=== PATIENT | female | born 1990 | race Caucasian/White ===

== ENCOUNTER 2024-05-14 19:51 | Emergency (ER) | payer OTHER, SELFPAY ==
[2024-05-14 19:54] VITALS: BP 162/108; BMI 53.3
--- NOTE | 2024-05-14 23:16 | ED.GENMED ---
History of Present Illness
General
Chief Complaint: Back Pain
Source: patient
Exam Limitations: none
Time Seen by Provider: 05/14/24 23:05
Nursing documentation reviewed up to this point in time: agreed with
History of Present Illness
History of Present Illness:
This is a 33-year-old woman with remote history of IV drug abuse, has been sober since 2019. She complains of right mid back pain that began mildly 5 days ago. She thought that she had pulled a muscle or slept funny. Mild discomfort over the past
5 days but then today while moving a couch she developed abrupt, severe pain right mid back and felt a pop in her right back region. She is concerned for possible rib fracture. Pain is worse with rotation of her trunk, worse with raising her right
arm above her head. She denies shortness of breath and pain is only minimally increased with deep breath. She has not had a cough, no fever no chills, no abdominal pain, no palpitations. She has not taken anything for discomfort.
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 She is scheduled to return to work on Thursday, May 16.
Past History
Past History
ED Past Medical History: Psychiatric (Depression, bipolar disorder, prior history of substance abuse), Other (IV drug abuse-sober since 2019) and Other (Gallstone pancreatitis, UTIs)
ED Past Surgical History: Appendectomy and Cholecystectomy
Social History
Tobacco: Smoker (1 cigarette per day)
Alcohol: None
Drug: Former user
Personal: Single
Living: with family
Employment: Employed (Works in retail)
Family History
Family History: Negative Early CAD
Phy Exam
Physical Exam
Physical Exam:
GENERAL: 33-year-old obese woman appears her stated age, sitting upright in chair in exam room. She is bright and alert, pleasant, appears in no acute distress.
EYE: pupils equal and round. Anicteric
NECK: Supple, nontender, no meningismus, no significant adenopathy. No midline bony tenderness.
ENT: oral mucosa is moist. No rhinorrhea.
CARDIAC: Regular rate and rhythm. no murmur. No tenderness to the anterior chest wall.
LUNGS: Clear breath sounds bilaterally, no acute respiratory distress, no wheezes/rales/rhonchi
BACK: No midline bony tenderness. There is moderate tenderness right mid to distal thoracic region at area of palpable muscle spasm right thoracic paravertebral musculature. There is no tenderness to the upper back, no parascapular tenderness nor
tenderness across the shoulders.
ABDOMEN: Soft, nondistended, without focal tenderness, no r/g, no cvat. normoactive BS.
NEUROLOGICAL: Alert and oriented x3, no focal neuro deficits. Gait is steady.
SKIN: Warm and dry, normal color, skin intact. No rash.
MUSCULOSKELETAL: No C/C/E. peripheral pulses are full and equal b/l. No palpable tenderness.
PSYCH: Normal and appropriate interaction.
Course
Orders/Labs/Results
Orders:
Orders
05/14/24 19:57
Ribs, Right 3 View W/PA Chest [CR Ribs-right 3 Vw W/pa Chest*] Urgent
Comment:
Reason For Exam: pain
05/14/24 23:16
Cyclobenzaprine HCl [Flexeril] 10 mg PO NOW STA
Ketorolac [Toradol] 60 mg IM NOW STA
Vital Signs
Initial and Last Documented VS:
Initial Vital Signs
Temp Pulse Resp BP Pulse Ox
98.2 F 100 24 162/108 99
05/14/24 19:54 05/14/24 19:54 05/14/24 19:54 05/14/24 19:54 05/14/24 19:54
Last Documented Vital Signs
Temp Pulse Resp BP Pulse Ox
98.2 F 100 24 162/108 99
05/14/24 19:54 05/14/24 19:54 05/14/24 19:54 05/14/24 19:54 05/14/24 19:54
MDM/Problems Addressed
Differential Diagnosis Includes:
History and exam most consistent with acute thoracic paravertebral muscle spasm. Must consider occult rib fracture, pneumothorax, less likely pneumonia/infiltrate.
Moderately elevated blood pressure initially likely related to pain. Improving upon recheck.
Chest x-ray/rib series shows clear lung valladares, no pneumothorax, no evidence of rib fracture.
Will medicate for pain with an IM dose of Toradol and an oral dose of Flexeril and a prescription for diclofenac has been provided for as needed pain along with Flexeril for as needed muscle spasm.
Discussed supportive measures, topical ice then transitioning to heat.
Prompt follow-up with PCP for recheck.
Out of work note provided.
Return precautions discussed.
Chronic conditions affecting care: Other (Remote history of substance abuse; opioids will be avoided.)
*Radiology
Radiology exam reviewed: preliminary read by ED provider (Chest x-ray/right rib series shows no evidence of fracture. Clear lung valladares.)
*Pulse Oximetry
Patient hypoxic: no
*Critical Care Note
Total Time (30-74mins, 75-104mins- exclusive of procedures): Not Applicable
ED Attending Note
-
Portions of this chart may have been created with voice recognition software.� Occasional wrong word or��sound alike� substitutions may have occurred due to the inherent limitations of voice recognition software.
Discharge Plan
Departure
Patient Disposition: Home (Routine Discharge)
Date of Disposition: 05/14/24
Time of Disposition: 23:16
Patient with high blood pressure during this ER visit?: Yes
Condition: Good
Discharge Problem:
acute right thoracic muscle strain
Instructions: Back Muscle Strain (DC), BLOOD PRESSURE
Prescriptions:
New
cyclobenzaprine 10 mg tablet
10 mg PO TIDPRN PRN (Reason: muscle spasm) Qty: 20 0RF
diclofenac sodium 75 mg tablet,delayed release (DR/EC)
75 mg PO BID PRN (Reason: pain) Qty: 30 0RF
No Action
prazosin 1 MG capsule
1 mg PO DAILY
risperidone 2 MG tablet
2.5 mg PO DAILY
ondansetron 4 MG tablet,disintegrating
4 mg PO TIDPRN PRN (Reason: nausea/vomiting) Qty: 14 0RF
cephalexin 500 mg capsule
500 mg PO TID 10 Days Qty: 30 0RF
Referrals:
Rukhsana Antoine, [Family Provider] - Call in 1-3 days for appt
Stand Alone Forms: Return to Work
Interventions
Interventions:
*Risk Screen - Suicide Last Done: 05/14/24 19:54
*General Assessment Last Done: 05/14/24 22:37
*Neglect/Abuse Screening Last Done: 05/14/24 19:54
ED- Fall Risk Assessment Last Done: 05/14/24 19:54
ED-Musculoskeletal Assessment Last Done: 05/14/24 20:57
Discharge Date and Time
Print Language: URDU
[2024-05-14] MEDS: FLEXERIL 10 MG PO (23:35)
[2024-05-14] MEDS: TORADOL 60 MG IM (23:35)
[2024-05-14 23:39] VITALS: BP 164/99
== END 2024-05-14 23:47 | disposition home or self-care (01) ==
LOC: EMR 19:51
PROVIDERS: EMERGENCY PHYSICIAN Emergency Medicine; FAMILY PHYSICIAN Family Medicine
DX: S29.012A Strain of muscle and tendon of back wall of thorax, initial encounter (principal); M62.830 Muscle spasm of back; M79.601 Pain in right arm; X50.0XXA Overexertion from strenuous movement or load, initial encounter; Y93.89 Activity, other specified; R03.0 Elevated blood-pressure reading, without diagnosis of hypertension; F32.A Depression, unspecified; F31.9 Bipolar disorder, unspecified; F17.210 Nicotine dependence, cigarettes, uncomplicated; F19.11 Other psychoactive substance abuse, in remission; Z87.440 Personal history of urinary (tract) infections; Z90.49 Acquired absence of other specified parts of digestive tract
CPT/HCPCS: 99284; 96372; 71101

== ENCOUNTER 2024-09-23 10:19 | Emergency (ER) | payer OTHER, SELFPAY ==
[2024-09-23 10:24] VITALS: BP 143/90
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
--- NOTE | 2024-09-23 10:40 | EDRN ---
Azul MALONEY in room w/ pt.
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
[2024-09-23 10:54] VITALS: BMI 51.3
--- NOTE | 2024-09-23 14:00 | EDRN ---
Pt cleared by psychiatrist and will be discharged home to continue to see her own psychiatrist and continue her outpatient therapy.
[2024-09-23 14:10] VITALS: BP 129/92
--- NOTE | 2024-09-23 14:19 | EDRN ---
[facility] started at 10:30 am deborah/ Skye ARGUELLES.
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
== END 2024-09-23 14:10 | disposition home or self-care (01) ==
LOC: EMR 10:19
PROVIDERS: EMERGENCY PHYSICIAN Emergency Medicine
DX: Z13.30 Encounter for screening examination for mental health and behavioral disorders, unspecified (principal); R45.851 Suicidal ideations; F60.3 Borderline personality disorder; F31.9 Bipolar disorder, unspecified; F43.10 Post-traumatic stress disorder, unspecified; F17.200 Nicotine dependence, unspecified, uncomplicated; Z87.440 Personal history of urinary (tract) infections; Z90.49 Acquired absence of other specified parts of digestive tract
CPT/HCPCS: 99282

== ENCOUNTER 2024-10-16 11:26 | Emergency (ER) | payer OTHER, SELFPAY ==
[2024-10-16 11:29] VITALS: BP 137/98
[2024-10-16 12:04] VITALS: BMI 49.4
--- NOTE | 2024-10-16 12:34 | ED.GENMED ---
History of Present Illness
General
Chief Complaint: Dental Problem
Time Seen by Provider: 10/16/24 12:21
History of Present Illness
History of Present Illness:
33-year-old female presents to the emergency department for evaluation of right-sided facial swelling and pain beginning yesterday. Known dental caries, states due to the sharp limitations she is unable to get any definitive dental treatments done.
No fevers or chills. Denies dysphagia or voice changes.
Past History
Past History
ED Past Medical History: Psychiatric (Depression, bipolar disorder, prior history of substance abuse), Other (IV drug abuse-sober since 2019) and Other (Gallstone pancreatitis, UTIs)
ED Past Surgical History: Appendectomy and Cholecystectomy
Social History
Tobacco: Smoker (1 cigarette per day)
Alcohol: None
Drug: Former user
Personal: Single
Living: with family
Employment: Employed (Works in retail)
Family History
Family History: Negative Early CAD
Review of Systems
Review of Systems
Allergies reviewed?: Yes
All Other Systems: ROS reviewed and negative except as documented in HPI and ROS
Phy Exam
Physical Exam
Physical Exam:
GEN: Well appearing, NAD, WDWN
HEENT: Oral mucosa moist, no scleral icterus. Moderate right mandibular swelling with palpable abscess to the right buccal gingiva, mild cervical adenopathy
Cardiac: Regular rate
Lung: No respiratory distress, no tachypnea
MSK: No gross deformity or injuries
Skin: Good color, no pallor or jaundice, no rashes
Neuro: AO x3, moves all extremities freely
Psych: Calm, cooperative
Course
Vital Signs
Initial and Last Documented VS:
Initial Vital Signs
Temp Pulse Resp BP Pulse Ox
97.7 F 88 16 137/98 100
10/16/24 11:29 10/16/24 11:29 10/16/24 11:29 10/16/24 11:29 10/16/24 11:29
Last Documented Vital Signs
Temp Pulse Resp BP Pulse Ox
97.7 F 88 16 137/98 100
10/16/24 11:29 10/16/24 11:29 10/16/24 11:29 10/16/24 11:29 10/16/24 11:29
Procedures
Incision/Drainage/Joint Aspiration
R buccal mucosa:
Anethesia: 1% Lidocaine with Epi
Type of procedure: incise and drain
Nature of site: abscess
Description of abscess: less than 3cm
Loculations broken up: No
How much fluid was obtained?: scant amount
Fluid description: purulent and bloody
Treatment: left open for drainage
MDM/Problems Addressed
MDM/Problems Addressed:
Bedside drainage attempted with only minimal improvement and minimal purulent discharge. Will start the patient on Augmentin, no trismus concerning forinfection, discussed return parameters and importance of dental follow-up
*Critical Care Note
Total Time (30-74mins, 75-104mins- exclusive of procedures): Not Applicable
ED Attending Note
-
Portions of this chart may have been created with voice recognition software.� Occasional wrong word or��sound alike� substitutions may have occurred due to the inherent limitations of voice recognition software.
Discharge Plan
Departure
Patient Disposition: Home (Routine Discharge)
Date of Disposition: 10/16/24
Time of Disposition: 13:26
Patient with high blood pressure during this ER visit?: No
Discharge Problem:
Abscess, dental
Instructions: Tooth Abscess (DC)
Prescriptions:
New
amoxicillin-pot clavulanate 875-125 mg tablet
1 tab PO BID 7 Days Qty: 14 0RF
No Action
prazosin 1 MG capsule
1 mg PO DAILY
risperidone 2 MG tablet
2.5 mg PO DAILY
ondansetron 4 MG tablet,disintegrating
4 mg PO TIDPRN PRN (Reason: nausea/vomiting) Qty: 14 0RF
cephalexin 500 mg capsule
500 mg PO TID 10 Days Qty: 30 0RF
cyclobenzaprine 10 mg tablet
10 mg PO TIDPRN PRN (Reason: muscle spasm) Qty: 20 0RF
diclofenac sodium 75 mg tablet,delayed release (DR/EC)
75 mg PO BID PRN (Reason: pain) Qty: 30 0RF
Referrals:
Dulce Luz NP [Family Provider] -
Activity Restrictions/Additional Instructions:
Reduced-Fee Dental Clinics
[facility]: [phone] call for appt. No walk ins
[facility]:
[facility]: [phone]
[facility] [phone]
[facility]: . No walk ins
[facility]: [phone]
[facility]: [phone]
[facility]: 1-
[facility]: [phone]
[facility]: [phone]
[facility], Free for uninsured
[facility]: [phone]
[facility] ex [address] [facility] [place] [address]
[facility]:
[facility]:
Interventions
Interventions:
*Risk Screen - Suicide Last Done: 10/16/24 11:29
*General Assessment Last Done: 10/16/24 11:29
*Neglect/Abuse Screening Last Done: 12/15/24 11:29
ED- Fall Risk Assessment Last Done: 10/16/24 11:29
*Nursing Disposition Last Done: 10/16/24 13:37
Discharge Date and Time
Discharge Date/Time: 10/16/24 13:38
Print Language: SAMI
== END 2024-10-16 13:38 | disposition home or self-care (01) ==
LOC: EMR 11:26
PROVIDERS: EMERGENCY PHYSICIAN Emergency Medicine; FAMILY PHYSICIAN Nurse Practitioner Family
DX: K04.7 Periapical abscess without sinus (principal); K02.9 Dental caries, unspecified; F31.9 Bipolar disorder, unspecified; F17.210 Nicotine dependence, cigarettes, uncomplicated; F19.11 Other psychoactive substance abuse, in remission; Z90.49 Acquired absence of other specified parts of digestive tract; Z87.440 Personal history of urinary (tract) infections; Z88.5 Allergy status to narcotic agent
CPT/HCPCS: 99284; 10060